=== PATIENT | female | born 1965 | race Two or more races ===

== ENCOUNTER 2016-03-23 11:49 | Emergency (ER) | payer MEDICAID ==
[~2016-03-23] VITALS: Ht 165.1 cm; Wt 74.8 kg
[2016-03-23 12:14] VITALS: BP 146/77
== END 2016-03-23 12:58 | disposition home or self-care (01) ==
LOC: ER 12:04
DX: S62.651A Nondisplaced fracture of middle phalanx of left index finger, initial encounter for closed fracture (principal); W22.8XXA Striking against or struck by other objects, initial encounter; Y93.89 Activity, other specified; Y99.8 Other external cause status; Y92.89 Other specified places as the place of occurrence of the external cause
CPT/HCPCS: 29130; 73140